=== PATIENT | male | born 1950 | race Caucasian/White ===

== ENCOUNTER 2018-11-01 01:31 | Outpatient (CLI) | payer MEDICARE, MEDICAID, SELFPAY ==
[2018-11-01 11:20] LABS: ALT 34 U/L (12-78); AST 16 U/L (15-37); Albumin 3.7 g/dL (3.4-5.0); Alkaline Phosphatase 62 U/L (46-116); Anion Gap 9.2 mmol/L (3-11); BUN 17 mg/dL (7-18); Bilirubin, Total 0.7 mg/dL (0.2-1.0); CO2 26.8 mmol/L (21.0-32.0); CREATININE 0.88 mg/dL (0.70-1.30); Calcium 8.9 mg/dL (8.5-10.1); Chloride 103 mmol/L (98-107); Cholesterol 206 mg/dL (50-200); Glucose 124 mg/dL (70-100); HDL Cholesterol 36 mg/dL (40-60); LDL CHOLESTEROL 140 mg/dL (<100); Potassium 4.4 mmol/L (3.5-5.1); Sodium 139 mmol/L (136-145); Total Protein 6.8 g/dL (6.4-8.2); Triglyceride 135 mg/dL (30-150)
== END 2018-11-01 01:51 ==
DX: D12.6 Benign neoplasm of colon, unspecified (principal); R53.83 Other fatigue; R63.8 Other symptoms and signs concerning food and fluid intake; E78.00 Pure hypercholesterolemia, unspecified
CPT/HCPCS: 36415; 80053; 80061; 83721

== ENCOUNTER 2018-11-23 01:17 | Outpatient (CLI) | payer MEDICARE, MEDICAID, SELFPAY ==
[2018-11-23 12:22] LABS: Hemoglobin A1C 5.7 % (4.5-6.2)
[2018-11-26 10:01] LABS: PSA, Screening 1.3 ng/ml (0-4.5)
== END 2018-11-23 01:37 ==
DX: R73.01 Impaired fasting glucose (principal); E78.5 Hyperlipidemia, unspecified; Z12.5 Encounter for screening for malignant neoplasm of prostate
CPT/HCPCS: 36415; 84153; 83036

== ENCOUNTER 2019-01-16 13:51 | Outpatient (CLI) | payer MEDICARE, MEDICAID, SELFPAY ==
--- NOTE | 2019-01-16 09:28 | DI.RAD_ITS ---
SYMPTOM/DIAGNOSIS: LEFT SHOULDER PAIN LEFT SHOULDER: The bony structures are normally mineralized. The glenohumeral joint is intact. There are moderate degenerative changes involving the AC joint. There is no evidence of a fracture or dislocation.
== END 2019-01-16 14:11 ==
PROVIDERS: Visit Provider Student in an Organized Health Care Education/Training Program
DX: M25.512 Pain in left shoulder (principal); M19.012 Primary osteoarthritis, left shoulder; S46.012A Strain of muscle(s) and tendon(s) of the rotator cuff of left shoulder, initial encounter; W01.0XXA Fall on same level from slipping, tripping and stumbling without subsequent striking against object, initial encounter
CPT/HCPCS: 99203; 99214; 73030

== ENCOUNTER 2019-01-29 00:49 | Outpatient (CLI) | payer MEDICARE, MEDICAID, SELFPAY ==
--- NOTE | 2019-01-29 08:16 | DI.MRI_ITS ---
SYMPTOM/DIAGNOSIS: LEFT SHOULDER INJURY S49.92XA MRI LEFT SHOULDER: Routine examination was performed. There is a complete tear of the supraspinatus tendon with retraction to the level of the acromion. The infraspinatus tendon is intact. There is tendinosis noted. There is intermediate signal in the supraspinatus tendon superiorly consistent with tendinosis. The teres minor tendon is intact. Mild fatty atrophy is seen of the supraspinatus and infraspinatus muscles. The teres minor, subscapularis muscles appear unremarkable. There is mild increased signal seen within the biceps tendon suspicious for tendinosis. No evidence of a stacey tear is seen. The glenoid labrum is grossly unremarkable on this noncontrast examination. The articular cartilage is unremarkable. Degenerative changes are seen at the acromioclavicular joint. No evidence of an occult fracture or avascular necrosis is seen. The ligaments appear intact. There is fluid seen in the subacromial subdeltoid bursa. No soft tissue mass is appreciated. IMPRESSION: Full thickness tear of the supraspinatus tendon with retraction to the level of the acromion. 2. Tendinopathy involving the biceps and infraspinatus tendons 3. Degenerative changes of the left shoulder.
== END 2019-01-29 01:09 ==
PROVIDERS: Visit Provider Student in an Organized Health Care Education/Training Program
DX: S49.92XA Unspecified injury of left shoulder and upper arm, initial encounter (principal); M25.512 Pain in left shoulder; M75.122 Complete rotator cuff tear or rupture of left shoulder, not specified as traumatic; M75.82 Other shoulder lesions, left shoulder; M19.012 Primary osteoarthritis, left shoulder
CPT/HCPCS: 73221

== ENCOUNTER → 2019-02-01 09:00 | Outpatient (BNVA) | payer MEDICARE, MEDICAID, SELFPAY | PROVIDERS: Visit Provider Student in an Organized Health Care Education/Training Program | DX: M25.512 Pain in left shoulder (principal); M75.122 Complete rotator cuff tear or rupture of left shoulder, not specified as traumatic | CPT/HCPCS: 99213 ==

== ENCOUNTER 2019-02-08 03:58 | Outpatient (CLI) | payer MEDICARE, MEDICAID, SELFPAY ==
[2019-02-08 10:48] LABS: Hemoglobin A1C 5.4 % (4.5-6.2)
== END 2019-02-08 04:18 ==
PROVIDERS: Nurse Practitioner
DX: R73.01 Impaired fasting glucose (principal)
CPT/HCPCS: 36415; 83036

== ENCOUNTER 2019-02-14 05:56 | Day surgery (SDC) | payer MEDICARE, MEDICAID, SELFPAY ==
[2019-02-14] VITALS (7 sets, daily range): BP systolic 108–144; BP diastolic 63–91; PULSE 43–54; RESP 12–18; TEMP 36.3–36.5; O2SAT 96–98
[2019-02-14] MEDS: Lactated Ringers 1,000 ML 80 ML IV (06:33)
[2019-02-14] MEDS: Bupivacaine LIPOSOME/PF 133 MG/10 ML VIAL IJ (07:10)
[2019-02-14] MEDS: Bupivacaine 0.5% Pres-Free 30 ML VIAL (07:10)
[2019-02-14] MEDS: ceFAZolin 2 GM/50 ML BAG IVPB (07:53)
--- NOTE | 2019-02-14 09:35 | W.PM.DSUDISC ---
Discharge Plan Disposition Patient Disposition: HOME Condition: Good Discharge Details Reason For Visit: Left Rotator Cuff Tear Attending Provider: Glen Escalona Primary Care Provider: Martina Chery Home Meds and New Rx's Prescriptions: New acetaminophen 500 mg tablet 1,000 mg PO Q8H PRN (Reason: pain) Qty: 90 RF: 3 ibuprofen 600 mg tablet 600 mg PO TID PRNQty: 90 RF: 3 oxycodone 5 mg tablet 5 mg PO Q6H PRN PRN (Reason: pain) Qty: 8 RF: 0 Continued pravastatin 10 mg tablet 10 mg PO DAILY Qty: 90 RF: 3 Discontinued ibuprofen 200 mg capsule 400 mg PO BID PRNRF: 0 acetaminophen 500 mg capsule 500 mg PO Q6H PRNRF: 0 Discharge Instructions Stand Alone Forms: Pola hinds/RCR Referrals: Glen Escalona MD [ [facility] STAFF PHYSICIAN] - Equipment/Supplies: Sling Activity:: Stay in sling except for hygiene and pendulums Remove Dressings/Wound Care:: 72 hours Shower/Bathe:: 72 hours Diet:: As Tolerated Discharge Orders Discharge Orders: Discharge Order (Routine); Ordered 02/14/19 Ordered By: Glen Escalona DS: Diagnosis Discharge Diagnosis (1) 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
--- NOTE | 2019-02-15 07:29 | W.PM.OP ---
Date of service: 02/14/19 Time of Service: 10:30 Operative Note DATE OF PROCEDURE: 02/14/19 PRE-OP DIAGNOSIS: Left rotator cuff tear, left biceps tendon tear PROCEDURE: - Arthroscopic Rotator Cuff Repair - Extensive debridement of anterior and posterior glenohumeral joint and rotator cuff SURGEON: Glen Escalona PROFESSIONAL SYSTEM ADMINISTRATOR: Agnel Rahman ANESTHESIA: GETA and regional ESTIMATED BLOOD LOSS: 0 PATHOLOGY: none sent COMPLICATIONS: None Patient was transported to: PACU Patient's condition: stable Indications: I have seen Jacques in clinic for a painful shoulder. Pathology was confirmed based on MRI and exam findings. Nonoperative measures were exhausted but disability and pain persisted. I discussed shoulder arthroscopy and procedures. I reviewed the risks of the procedures to include, but not limited to, bleeding, infection, pain, stiffness, damage to nerves or vessels, recurrence, hardware failure, blood clot. Despite these risks, the patient elected to proceed. Findings: A diagnostic arthroscopy was performed with the following findings: - Glenohumeral Joint: No significant arthritic changes - Labrum: Fraying seen of the superior labrum from 10:00 to 1:00 but no gross displaceable labral tear - Cuff: Complete tear of supraspinatus and the anterior portion of infraspinatus along with the coracohumeral ligament - Biceps: Tearing and fraying seen within the intra-articular portion of the biceps tendon - Subacromial: Mild inflammatory changes with previously noted rotator cuff tear, minimal spurring Procedure Description: Jacques was greeted in the preoperative holding area where the correct side was identified and marked. The consent was reviewed with the patient and signed. The history and physical was updated. All questions were answered. Jacques was taken back to the PACU for administration of an intrascalene nerve block. He was then taken to the operating room. The patient was placed into the supine position on the operating room table. A general anesthetic was administered. He was then positioned in the beach chair position. All bony prominences were well padded. The head was placed in a foam head of business development in a neutral position. Prophylactic antibiotics in the form of [Cefazolin] were administered. The left arm/shoulder was then prepped with Chloraprep and draped in a standard fashion with stockinette and shoulder drape. A timeout to confirm correct identity, side and site, procedure, allergies, anesthesia, and medical concerns was performed. The arm was placed into a pneumatic torres, [id number]. The shoulder arthroscopy was then performed. The glenohumeral joint was injected with 20 cc of normal saline with good flow back. A standard posterior portal was made and the joint was entered atraumatically with a blunt arthroscope. Once inside we had good visualization of the structures of the glenohumeral joint. An anterior portal was established with spinal needle localization. A 6.5 mm cannula was inserted. A probe was then used to perform a diagnostic arthroscopy. There is noted to be [no significant cartilage damage of the glenoid humeral joint]. The labrum was intact and attached to the glenoid but there was fraying noted from 10:00 to 1:00. There were [no loose bodies] in the inferior pouch. The superior rotator cuff was completely torn involving most of infraspinatus and all of the supraspinatus. The biceps tendon frayed and partially torn within the intra-articular segment. The subscapularis was intact with very minor fraying at its insertion to the lesser tuberosity. The arthroscope was then inserted into the subacromial space. The 6.5 mm cannula was placed lateral to the CA ligament. A complete bursectomy is performed anteriorly, posteriorly, and laterally with electrocautery and shaver. This had excellent exposure of the rotator cuff. The tear was easily identified. There was no significant spurring. Using a spinal needle a lateral portal was established. This became the viewing portal. A 7.5 mm cannula was inserted into this portal and a second posterior lateral portal was established for viewing. The tendon edge was debrided with a shaver. The bony footprint was also roughened with the shaver to promote bleeding and remove any remnant soft tissue. The coracohumeral ligament was still attached to the anterior supraspinatus making this a large crescent-shaped tear. After adequate preparation of the tendon and the bony bed I then proceeded with repair. I placed 2 Mitek 4.5 mm Healix anchors along the medial row, adjacent to the articular margin. Using a retrograde suture passer 2 horizontal mattress sutures were placed from each anchor. The tendon quality was quite good and this easily reduce the tendon down to the bony footprint. These were tied using standard arthroscopic knot tying techniques with excellent reduction of the tendon material. Given the good tendon material and access to bone I then placed 2 Lateral Row anchors. These were 4.75 mm Mitek Healix anchors placed in a knotless fashion incorporating 1 suture limb from each of the 4 sutures. One was placed anteriorly one was placed posteriorly. This suture bridge type technique had excellent reapproximation of the tendon onto the bone. Excess bursal tissue and inflammation was debrided. Excess fluid was evacuated. The portal sites were closed with 3-0 Monocryl. The wounds were dressed with Steri-Strips, 4 x 4's, ABDs, Medipore tape. A sling was applied. The patient tolerated the procedure well and was returned to the PACU in a stable condition suffering no known complication.
== END 2019-02-14 12:08 | disposition home or self-care (01) ==
PROVIDERS: Visit Provider Student in an Organized Health Care Education/Training Program
PROC: (CPT 29827; principal; 2019-02-14 07:30)
DX: M75.122 Complete rotator cuff tear or rupture of left shoulder, not specified as traumatic (principal); M75.22 Bicipital tendinitis, left shoulder; M75.82 Other shoulder lesions, left shoulder; M25.512 Pain in left shoulder; F10.10 Alcohol abuse, uncomplicated
CPT/HCPCS: 29827; 29823; C1713; J0131; J0690; J1100; J1885; J2250; J2405; J3010; L3670

== ENCOUNTER → 2019-02-25 08:12 | Outpatient (BNVA) | payer MEDICARE, MEDICAID, SELFPAY | PROVIDERS: Visit Provider Student in an Organized Health Care Education/Training Program | DX: S46.012A Strain of muscle(s) and tendon(s) of the rotator cuff of left shoulder, initial encounter (principal); X58.XXXA Exposure to other specified factors, initial encounter ==

== ENCOUNTER 2019-03-25 12:53 | Outpatient (CLI) | payer MEDICARE, MEDICAID, SELFPAY ==
--- NOTE | 2019-03-25 10:40 | DI.RAD_ITS ---
EXAM: XR HAND LT COMPLETE INDICATION: L hand pain. COMPARISON: No exams were available for comparison TECHNIQUE: 2D digital imaging was performed. FINDINGS: Regions of sclerosis and periarticular radiolucencies are demonstrated at the 1st and 2nd metacarpoph alangeal joints. There are also small radiolucencies involving the ulnar styloid. DJD is noted invol ving the interphalangeal joints and intercarpal joints. There is soft tissue swelling over the dorsu m of the hand at the level of the 1st and 2nd metacarpophalangeal joints. IMPRESSION: The findings raise the possibility of inflammatory joint disease. Correlation with the patient's clin ical status, appropriate laboratory tests is recommended.
== END 2019-03-25 13:13 ==
PROVIDERS: Visit Provider Student in an Organized Health Care Education/Training Program
DX: M79.642 Pain in left hand (principal); M18.52 Other unilateral secondary osteoarthritis of first carpometacarpal joint, left hand; M79.89 Other specified soft tissue disorders; Z47.89 Encounter for other orthopedic aftercare; M10.9 Gout, unspecified; S46.012A Strain of muscle(s) and tendon(s) of the rotator cuff of left shoulder, initial encounter; X58.XXXA Exposure to other specified factors, initial encounter
CPT/HCPCS: 73130

== ENCOUNTER 2019-04-02 08:48 | Outpatient (CLI) | payer MEDICARE, MEDICAID, SELFPAY ==
[2019-04-02 10:06] LABS: C-Reactive Protein 0.86 mg/dL (0.0-0.3); Uric Acid 6.2 mg/dL (3.5-7.2)
[2019-04-02 10:19] LABS: ESR 14 mm/hr (1-20)
== END 2019-04-02 09:08 ==
PROVIDERS: Visit Provider Student in an Organized Health Care Education/Training Program
DX: M10.9 Gout, unspecified (principal); M15.4 Erosive (osteo)arthritis
CPT/HCPCS: 36415; 85652; 84550; 86140

== ENCOUNTER → 2019-04-22 10:06 | Outpatient (BNVA) | payer MEDICARE, MEDICAID, SELFPAY | PROVIDERS: Visit Provider Student in an Organized Health Care Education/Training Program | DX: S46.012A Strain of muscle(s) and tendon(s) of the rotator cuff of left shoulder, initial encounter; X58.XXXA Exposure to other specified factors, initial encounter; M79.645 Pain in left finger(s); M15.4 Erosive (osteo)arthritis | CPT/HCPCS: 20600; 99213; J1030 ==

== ENCOUNTER 2019-04-30 01:55 | Outpatient (CLI) | payer MEDICARE, MEDICAID, SELFPAY ==
--- NOTE | 2019-04-30 15:30 | DI.MRI_ITS ---
EXAM: MR UPPER EXTREMITY LT WO CLINICAL HISTORY: erosive changes to bone, continued pain/swelling, M79.642 LT HAND PAIN. TECHNIQUE: Multiplanar multisequence MRI was performed. COMPARISON: XR HAND LT COMPLETE from 03/25/2019 FINDINGS: At the 2nd and 3rd metacarpophalangeal joints, note is made of marrow edema in the heads of the 2nd a nd 3rd metacarpals and the bases of the proximal phalanges of the 2nd and 3rd fingers. Note is also made of subchondral cysts in the heads of the 2nd and 3rd metacarpals. There are also small joint e ffusions. In the head of the 4th metacarpal bone subchondral cysts are present. Marrow signal is otherwise within normal limits. The abnormal marrow signal appears to be confined t o the 2nd and 3rd metacarpophalangeal joints. Periarticular spurring is seen in the distal interphalangeal joints of the fingers. This is consiste nt with degenerative arthritis. There is mild soft tissue edema around the 2nd and 3rd metacarpal joints. No focal fluid collection is present to suggest an abscess. The visualized tendons appear grossly unremarkable. IMPRESSION: 1. Abnormality involving the 2nd and 3rd metacarpophalangeal joints as described above. The findings are most suggestive of arthritis particularly an inflammatory arthritis.
== END 2019-04-30 02:15 ==
PROVIDERS: Visit Provider Student in an Organized Health Care Education/Training Program
DX: M79.642 Pain in left hand (principal); M25.542 Pain in joints of left hand; M25.442 Effusion, left hand; M19.042 Primary osteoarthritis, left hand
CPT/HCPCS: 73218

== ENCOUNTER 2019-05-09 13:47 | Outpatient (CLI) | payer MEDICARE, MEDICAID, SELFPAY ==
[2019-05-09 14:17] LABS: HCT 37.4 % (40.0-50.0); HGB 13.1 g/dL (13.5-17.5); Mean Corpuscular Volume 88.4 fL (80-95); Mean Platelet Volume 9.9 fL (8.0-11.0); Platelet Count 220 x1000/uL (130-400); RBC 4.23 m/cumm (4.50-6.00); RBC Distribution Width 12.8 % (11.8-14.1); White Blood Cell Count 5.71 k/cumm (4.4-10.8)
[2019-05-09 14:59] LABS: ESR 11 mm/hr (1-20)
[2019-05-09 15:26] LABS: C-Reactive Protein 0.61 mg/dL (0.0-0.3)
[2019-05-10 10:04] LABS: Rheumatoid Factor <8 IU/mL (<12.5)
[2019-05-10 15:44] LABS: ANA Interpretation Negative (NEGAT)
== END 2019-05-09 14:07 ==
PROVIDERS: Visit Provider Student in an Organized Health Care Education/Training Program
DX: M79.642 Pain in left hand (principal); M25.542 Pain in joints of left hand; M15.4 Erosive (osteo)arthritis
CPT/HCPCS: 36415; 85027; 85652; 86038; 86140; 86431

== ENCOUNTER → 2019-05-20 08:31 | Outpatient (BNVA) | payer MEDICARE, MEDICAID, SELFPAY | PROVIDERS: Visit Provider Student in an Organized Health Care Education/Training Program | DX: M79.642 Pain in left hand (principal); Z98.890 Other specified postprocedural states; M15.4 Erosive (osteo)arthritis; S46.012D Strain of muscle(s) and tendon(s) of the rotator cuff of left shoulder, subsequent encounter; X58.XXXD Exposure to other specified factors, subsequent encounter | CPT/HCPCS: 99213 ==

== ENCOUNTER → 2019-07-01 07:45 | Outpatient (BNVA) | payer MEDICARE, MEDICAID, SELFPAY | PROVIDERS: Visit Provider Student in an Organized Health Care Education/Training Program | DX: M79.643 Pain in unspecified hand (principal); S46.012D Strain of muscle(s) and tendon(s) of the rotator cuff of left shoulder, subsequent encounter; X58.XXXD Exposure to other specified factors, subsequent encounter | CPT/HCPCS: 99213 ==

== ENCOUNTER 2019-11-01 01:54 | Outpatient (CLI) | payer MEDICARE, MEDICAID, SELFPAY ==
[2019-11-01 07:36] LABS: HCT 40.7 % (40.0-50.0); HGB 14.3 g/dL (13.5-17.5)
[2019-11-01 08:40] LABS: ALT 24 U/L (16-63); AST 17 U/L (15-37); Albumin 3.5 g/dL (3.4-5.0); Alkaline Phosphatase 76 U/L (46-116); Anion Gap 6.1 mmol/L (3-11); BUN 22 mg/dL (7-18); CO2 30.9 mmol/L (21.0-32.0); CREATININE 1.04 mg/dL (0.70-1.30); Calcium 8.4 mg/dL (8.5-10.1); Calculated LDL 90 mg/dL (<100); Chloride 103 mmol/L (98-107); Cholesterol 155 mg/dL (<200); Glucose 98 mg/dL (74-106); HDL Cholesterol 34 mg/dL (40-60); Potassium 4.7 mmol/L (3.5-5.1); Sodium 140 mmol/L (136-145); Total Protein 6.6 g/dL (6.4-8.2); Triglyceride 157 mg/dL (<150)
== END 2019-11-01 02:14 ==
DX: I10 Essential (primary) hypertension (principal); E78.5 Hyperlipidemia, unspecified; E03.9 Hypothyroidism, unspecified; R53.83 Other fatigue; R73.01 Impaired fasting glucose
CPT/HCPCS: 36415; 80053; 80061; 85014; 85018

== ENCOUNTER 2020-05-21 16:28 | Outpatient (CLI) | payer MEDICARE, MEDICAID, SELFPAY ==
--- NOTE | 2020-05-21 13:56 | DI.RAD_ITS ---
EXAM: XR KNEE RT 3V AP,LAT,REYES CLINICAL HISTORY: knee pain without injury M25.561 PAIN RT KNEE. TECHNIQUE: 2D digital imaging was performed. COMPARISON: CR CHEST 2 VIEWS PA,LAT from 09/05/2013 FINDINGS: BONES: No acute fracture is present. No bony destructive lesion is seen. JOINTS: The knee is normally aligned. No joint effusion is seen. SOFT TISSUE: Normal. IMPRESSION: Unremarkable radiographs of the right knee. DATA REPOSITORY: RADIATION DOSE DELIVERED:
== END 2020-05-21 16:48 ==
DX: M25.561 Pain in right knee (principal)
CPT/HCPCS: 73562

== ENCOUNTER 2021-05-25 01:53 | Outpatient (CLI) | payer MEDICARE, MEDICAID, SELFPAY ==
[2021-05-25 10:54] LABS: ALT 21 U/L (16-63); AST 12 U/L (15-37); Albumin 3.7 g/dL (3.4-5.0); Alkaline Phosphatase 64 U/L (46-116); Anion Gap 6.2 mmol/L (3-11); BUN 20 mg/dL (7-18); Bilirubin, Total 0.7 mg/dL (0.2-1.0); CO2 28.8 mmol/L (21.0-32.0); CREATININE 0.9 mg/dL (0.70-1.30); Calcium 8.8 mg/dL (8.5-10.1); Calculated LDL 88 mg/dL (<100); Chloride 106 mmol/L (98-107); Cholesterol 162 mg/dL (<200); Glucose 93 mg/dL (74-106); HDL Cholesterol 44 mg/dL (40-60); Potassium 4.6 mmol/L (3.5-5.1); Sodium 141 mmol/L (136-145); Total Protein 6.7 g/dL (6.4-8.2); Triglyceride 151 mg/dL (<150)
== END 2021-05-25 01:54 | disposition home or self-care (01) ==
DX: E78.00 Pure hypercholesterolemia, unspecified (principal); Z00.00 Encounter for general adult medical examination without abnormal findings
CPT/HCPCS: 36415; 80053; 80061

== ENCOUNTER 2022-07-05 04:05 | Outpatient (CLI) | payer OTHER, MEDICAID, SELFPAY ==
[2022-07-05 13:26] LABS: Hemoglobin A1C 5.7 % (<5.7)
[2022-07-05 13:32] LABS: ALT 28 U/L (16-63); AST 22 U/L (15-37); Albumin 3.9 g/dL (3.4-5.0); Alkaline Phosphatase 62 U/L (46-116); Anion Gap 6.1 mmol/L (3-11); BUN 13 mg/dL (7-18); Bilirubin, Total 0.8 mg/dL (0.2-1.0); CO2 30.9 mmol/L (21.0-32.0); Calcium 8.8 mg/dL (8.5-10.1); Calculated LDL 64 mg/dL (<100); Chloride 102 mmol/L (98-107); Cholesterol 144 mg/dL (<200); Estimated GFR 80.97 (mL/min/1.73m2); Glucose 84 mg/dL (74-106); HDL Cholesterol 48 mg/dL (40-60); Potassium 3.9 mmol/L (3.5-5.1); Sodium 139 mmol/L (136-145); Total Protein 6.9 g/dL (6.4-8.2); Triglyceride 164 mg/dL (<150)
== END 2022-07-05 04:06 | disposition home or self-care (01) ==
LOC: LBO 04:05
PROVIDERS: PCP Nurse Practitioner Family; Visit Provider Nurse Practitioner Family
DX: E78.00 Pure hypercholesterolemia, unspecified; R73.01 Impaired fasting glucose
CPT/HCPCS: 36415; 80053; 80061; 83036

== ENCOUNTER → 2023-06-12 18:21 | Outpatient (CLI) | payer OTHER, MEDICAID, SELFPAY ==
--- NOTE | 2023-06-12 10:15 | DI.RAD_ITS ---
Exam(s) XR KNEE RT 4V AP,LAT,REYES,PAT EXAM: XR KNEE RT 4V AP,LAT,REYES,PAT CLINICAL HISTORY: evaluate pathology, M25.561 Pain in Right knee. TECHNIQUE: 2D digital imaging was performed. Three views. COMPARISON: CR XR KNEE RT 3V AP,LAT,REYES from 05/21/2020 FINDINGS: BONES: No acute fracture is present. No bony destructive lesion is seen. JOINTS: The knee is normally aligned. No joint effusion is seen. Joint spaces are maintained. Shy te periarticular spurring at the patellofemoral joint.. SOFT TISSUE: No change posterior calcifications. Mild calcification in quadriceps tendon. IMPRESSION: Minimal degenerative changes. DATA REPOSITORY: RADIATION DOSE DELIVERED:
== END ==
PROVIDERS: PCP Nurse Practitioner Family; Visit Provider Nurse Practitioner Family
DX: M25.561 Pain in right knee (principal)
CPT/HCPCS: 73564

== ENCOUNTER 2024-07-05 12:00 | Outpatient (CLI) | payer MEDICARE, SELFPAY ==
[2023-07-05 07:54] LABS: ALT 38 U/L (16-63); AST 15 U/L (15-37); Albumin 3.6 g/dL (3.4-5.0); Alkaline Phosphatase 52 U/L (46-116); Anion Gap 6.6 mmol/L (3-11); BUN 16 mg/dL (7-18); Bilirubin, Total 0.8 mg/dL (0.2-1.0); CO2 28.4 mmol/L (21.0-32.0); CREATININE 1.1 mg/dL (0.70-1.30); Calcium 8.8 mg/dL (8.5-10.1); Calculated LDL 90 mg/dL (<100); Chloride 104 mmol/L (98-107); Cholesterol 151 mg/dL (<200); Estimated GFR 71.77 (mL/min/1.73m2); Glucose 113 mg/dL (74-106); HDL Cholesterol 46 mg/dL (40-60); Potassium 4.7 mmol/L (3.5-5.1); Sodium 139 mmol/L (136-145); Total Protein 7.1 g/dL (6.4-8.2); Triglyceride 76 mg/dL (<150)
[2024-07-05 21:26] LABS: Hemoglobin A1C 5.6 % (<5.7)
[2024-07-05 21:32] LABS: ALT 21 U/L (16-63); AST 17 U/L (15-37); Alkaline Phosphatase 58 U/L (46-116); Anion Gap 9.3 mmol/L (3-11); BUN 18 mg/dL (7-18); Bilirubin, Total 1.21 mg/dL (0.2-1.0); CO2 26.7 mmol/L (21.0-32.0); Calcium 9.2 mg/dL (8.5-10.1); Calculated LDL 83 mg/dL (<100); Chloride 104 mmol/L (98-107); Cholesterol 162 mg/dL (<200); Estimated GFR 79.97 (mL/min/1.73m2); Glucose 87 mg/dL (74-106); HDL Cholesterol 51 mg/dL (40-60); Potassium 4.8 mmol/L (3.5-5.1); Sodium 140 mmol/L (136-145); Triglyceride 143 mg/dL (<150)
[2024-07-08 11:23] LABS: HIV-1/2 Ag & Ab Screen Negative (Negative)
[2024-07-08 11:28] LABS: Hepatitis C Ab w Rflx HCV PCR Negative (Negative)
== END 2024-07-05 12:30 | disposition home or self-care (01) ==
LOC: LBO 07-08 09:12
PROVIDERS: PCP Nurse Practitioner Family; Visit Provider Nurse Practitioner Family
DX: E78.1 Pure hyperglyceridemia (principal); E78.00 Pure hypercholesterolemia, unspecified; R73.01 Impaired fasting glucose; Z11.4 Encounter for screening for human immunodeficiency virus [HIV]; Z11.59 Encounter for screening for other viral diseases
CPT/HCPCS: 36415; 80053; 80061; 86803; 87389; 83036

== ENCOUNTER 2024-07-11 02:46 | Outpatient (CLI) | payer MEDICARE, SELFPAY ==
--- NOTE | 2024-07-11 07:00 | DI.US_ITS ---
Exam(s) US AAA SCREENING EXAM: US AAA SCREENING CLINICAL HISTORY: screening FOR AAA, H/O TOBACCO USE,Z87.891 COMPARISON: No priors for comparison. FINDINGS: Abdominal Aorta: Proximal: 2.5 x 2.4 cm Mid: 2.1 x 2.1 cm Distal: 2.4 x 2.3 cm Iliac's: Right: 1.3 x 1.3 cm Left: 1.5 x 1.5 cm No significant atherosclerotic disease is seen. IMPRESSION: No evidence of abdominal aortic aneurysm. DATA REPOSITORY:
== END 2024-07-11 03:06 ==
PROVIDERS: PCP Nurse Practitioner Family; Visit Provider Nurse Practitioner Family
DX: Z87.891 Personal history of nicotine dependence (principal); Z13.6 Encounter for screening for cardiovascular disorders
CPT/HCPCS: 76706